=== PATIENT | female | born 1965 | race Caucasian/White ===

== ENCOUNTER 2017-03-21 03:28 | Emergency (ER) | payer OTHER ==
[~2017-03-21] VITALS: Ht 157.5 cm; Wt 75.2 kg
[~2017-03-21 03:28] MED LIST: ANT25 PO; GLC500 PO; LISI-725 PO; LOVA20TA4 PO
[2017-03-21 03:35] VITALS: Ht 157.5 cm; Wt 75.2 kg
[2017-03-21] MEDS ORDERED: SOAP SUDS ENEMA PR STA (04:23)
[2017-03-21] MEDS ORDERED: SODIUM CHLORIDE 0.9% 1000ML 1,000 ML IV STA ×2 (05:28)
[2017-03-21] MEDS ORDERED: DICYCLOMINE HCL 10 MG/ML 2 ML AMP IM ONE (05:30)
[2017-03-21] MEDS ORDERED: OPTIRAY 320 IV PRN (05:45)
[2017-03-21] MEDS ORDERED: LISI40TA PO (05:50)
[2017-03-21] MEDS ORDERED: ATOR-22 PO (05:50)
[2017-03-21] MEDS ORDERED: PRED10TA PO (05:51)
[2017-03-21] MEDS ORDERED: PRLSR20 PO (05:55)
[2017-03-21] MEDS ORDERED: ALBI1INJ SQ (05:56)
[2017-03-21] MEDS ORDERED: EMPA1TAB3 PO (05:57)
[2017-03-21] MEDS ORDERED: METF-384 PO (05:58)
[2017-03-21] MEDS ORDERED: FLUT0.15 NAE (05:59)
[2017-03-21] MEDS ORDERED: FERR1TAB13 PO (06:00)
[2017-03-21 06:09] LABS: BASO % 0.3 %; BASO ABS # 0.04 K/uL (0-0.2); COMPLETE YES; EOS % 1.7 %; HEMATOCRIT 42.4 % (37-47); IG% 0.3 %; LYMPH % 14.4 %; LYMPH ABS # 2.25 K/uL (1.2-3.4); MEAN CELL VOLUME 86.7 fL (80-100); MEAN CORPUSCULAR HEMOGLOBIN 30.3 pg (25-34); MEAN CORPUSCULAR HGB CONC 34.9 g/dl (32-36); MEAN PLATELET VOLUME 9.3 fL (7.4-10.4); MONO % 6.5 %; NEUT % 76.8 %; PLATELET COUNT 298 K/uL (130-400); RED BLOOD COUNT 4.89 M/uL (4.2-5.4); WHITE BLOOD COUNT 15.65 K/uL (4.8-10.8)
[2017-03-21 06:10] LABS: ISTAT HEMOGLOBIN 15.3 g/dl (12.0-16.0); ISTAT IONIZED CALCIUM 1.11 mmol/l (1.12-1.32)
[2017-03-21 06:21] LABS: BUN/CREATININE RATIO 12.8 (10-20); CALCIUM 9.6 mg/dl (8.5-10.1); CREATININE 1.2 mg/dl (0.60-1.20); POTASSIUM 3.8 mmol/L (3.5-5.1)
[2017-03-21 06:30] VITALS: TEMP 36.8
[2017-03-21 06:38] LABS: PREG INTERNAL NEGATIVE QC NEG CLEAR BACKGROUND; PREG INTERNAL POSITIVE QC POS CONTROL LINE
--- NOTE | 2017-03-21 06:50 | DIAGNOSTIC IMAGING REPORT ---
ABD/PELVIS IV CONTRAST ONLY HISTORY: 51 years-old Female acute left lower quadrant abdominal pain. Initial exam. COMPARISON: Acute abdominal series radiographs of same day TECHNIQUE: Multiple axial CT images of the abdomen and pelvis were obtained following the intravenous administration of 94 ml Optiray 320. A dose lowering technique was used consistent with the principals of CRISTY. FINDINGS: The lung bases are generally clear. There is no pneumoperitoneum. The imaged inferior cardiac chambers are unremarkable with trace pericardial effusion. Gallbladder is contracted. The liver, spleen, and pancreas within normal limits. 2 mm calcification associated with the lateral limb left adrenal gland is noted which may reflect remote hemorrhage. Right adrenal gland is within normal limits. Kidneys, ureters and urinary bladder are within normal limits. Focal area of ill-defined low-attenuation within the right fundal uterus, 1.7 x 1.4 cm is suspicious for uterine fibroid. Trace fluid is seen within the endometrial canal. Focal area of low attenuation, 1.7 x 1.6 cm in the region of the right vagina is noted. Aorta appears unremarkable. No bulky adenopathy. There is no bowel obstruction or focal bowel wall thickening. The majority of the colon is fluid-filled. The appendix measures the upper limits of normal at 7 mm, however is noninflamed. Soft tissues are unremarkable. The bones are intact. IMPRESSION: 1. Fluid-filled colon suggests diarrheal state without focal bowel wall thickening or bowel obstruction. 2. The appendix measures within the upper limits of normal at 7 mm however does not appear to be inflamed. 3. Probable right fundal uterine fibroid. 4. Trace fluid within the endometrial canal is noted in addition to a cystic appearing 1.7 cm lesion of the right vagina which is nonspecific and may reflect a Samuel duct cyst. The above report was generated using voice recognition software. It may contain grammatical, syntax or spelling errors. Electronically signed by: Juan C Kumar M.D. 03/21/2017 6:48 AM Dictated Date/Time: 03/21/2017 6:39 AM
--- NOTE | 2017-03-21 06:57 | EMERGENCY ROOM VISIT NOTE ---
History First contact with patient: 03:43 Chief Complaint: GI ASSESSMENT Stated Complaint: BAD PAIN IN INTESTINES Nursing Triage Summary: pt c/o lower abd pain with nausea since yesterday, states has hx of constipation and her last bm was 2 wks ago History of Present Illness The patient is a 51 year old female who presents to the Emergency Room with complaints of abdominal bloating cramping who feels constipated for the past week with nausea. Patient states she's been trying her fiber supplement with no relief of symptoms. Patient has a history of constipation. No history of bowel obstruction. Patient had small bowel movements. She is passing gas. Patient denies chest pain, dyspnea, fever, chills,vomiting, diarrhea, back pain , urinary symptoms. Patient sees GI at [facility]. She is unable to recall the exact name. She last saw him in September of this year. Review of Systems See HPI for pertinent positives & negatives. A total of 10 systems reviewed and were otherwise negative. Past Medical/Surgical History Hypertension, diabetes, hyperlipidemia, Social History Smoking Status: Never Smoker Smokeless Tobacco Use: No Drug Use: none Housing Status: lives with family Current/Historical Medications Scheduled Albiglutide (Tanzeum), 30 MG SQ WK Atorvastatin (Lipitor), 20 MG PO DAILY Empagliflozin (Jardiance), 25 MG PO QAM Ferrous Sulfate ( Ferrous Sulfate), 325 MG PO BID Fluticasone Propionate (Nasal) (Flonase Allergy Relief), 2 SPRY ELIZABETH DAILY Lisinopril (Zestril), 40 MG PO DAILY Metformin Hcl (Glucophage), 1,000 MG PO BID Omeprazole (Prilosec), 20 MG PO DAILY Prednisone Tab (Prednisone), 10 MG PO DAILY/UD Physical Exam Vital Signs Date Time Temp Pulse Resp B/P (MAP) Pulse Ox O2 Delivery O2 Flow Rate FiO2 03/21/17 06:30 36.8 03/21/17 06:13 87 20 107/58 98 Room Air 03/21/17 03:35 49 20 109/77 100 Room Air Physical Exam VITALS: Vitals are noted on the nurse's note and reviewed by myself. Vital signs stable. GENERAL: Pleasant female, in no acute distress, nondiaphoretic, well-developed well-nourished. SKIN: The skin was without rashes, erythema, edema, or bruising. There is no tenting of the skin. Capillary reflex less than 2 seconds. HEAD: Normocephalic atraumatic. EARS: External auditory canals clear, tympanic membranes pearly adams without erythema or effusion bilaterally. EYES: Pupils equal round and reactive to light and accommodation. Conjunctivae without injection, sclerae without icterus. Extraocular movements intact. NOSE: Patent, turbinates without inflammation or discharge. MOUTH: Mucous membranes moist. Pharynx without erythema or exudate. Uvula midline. Airway patent. Tongue does not deviate. NECK: Supple without nuchal rigidity. No lymphadenopathy. No thyromegaly. Cervical spine is nontender. No JVD. HEART: Regular rate and rhythm without murmurs gallops or rubs. LUNGS: Clear to auscultation bilaterally without wheezes, rales or rhonchi. No dullness to percussion. No retractions or accessory muscle use. ABDOMEN: Positive bowel sounds x 4. Normal tympanic percussion. Soft, nontender, without masses or organomegaly. Steward sign negative. No guarding or rebound tenderness. No CVA tenderness MUSCULOSKELETAL: No muscle atrophy, erythema, or edema noted. NEURO: Patient was alert and oriented to person place and time. Normal sensation to light and sharp touch. No focal neurological deficits. Medical Decision & Procedures Laboratory Results 03/21/17 05:50 Red Blood Count 4.89, Mean Corpuscular Volume 86.7, Mean Corpuscular Hemoglobin 30.3, Mean Corpuscular Hemoglobin Concent 34.9, Mean Platelet Volume 9.3, Neutrophils (%) (Auto) 76.8, Lymphocytes (%) (Auto) 14.4, Monocytes (%) (Auto) 6.5, Eosinophils (%) (Auto) 1.7, Basophils (%) (Auto) 0.3, Neutrophils # (Auto) 12.04, Lymphocytes # (Auto) 2.25, Monocytes # (Auto) 1.01, Eosinophils # (Auto) 0.26, Basophils # (Auto) 0.04 03/21/17 05:50 Test 03/21/17 05:50 03/21/17 05:57 White Blood Count 15.65 K/uL (4.8-10.8) Red Blood Count 4.89 M/uL (4.2-5.4) Hemoglobin 14.8 g/dL (12.0-16.0) Hematocrit 42.4 % (37-47) Mean Corpuscular Volume 86.7 fL (80-100) Mean Corpuscular Hemoglobin 30.3 pg (25-34) Mean Corpuscular Hemoglobin Concent 34.9 g/dl (32-36) Platelet Count 298 K/uL (130-400) Mean Platelet Volume 9.3 fL (7.4-10.4) Neutrophils (%) (Auto) 76.8 % Lymphocytes (%) (Auto) 14.4 % Monocytes (%) (Auto) 6.5 % Eosinophils (%) (Auto) 1.7 % Basophils (%) (Auto) 0.3 % Neutrophils # (Auto) 12.04 K/uL (1.4-6.5) Lymphocytes # (Auto) 2.25 K/uL (1.2-3.4) Monocytes # (Auto) 1.01 K/uL (0.11-0.59) Eosinophils # (Auto) 0.26 K/uL (0-0.5) Basophils # (Auto) 0.04 K/uL (0-0.2) RDW Standard Deviation 42.7 fL (36.4-46.3) RDW Coefficient of Variation 13.4 % (11.5-14.5) Immature Granulocyte % (Auto) 0.3 % Immature Granulocyte # (Auto) 0.05 K/uL (0.00-0.02) Est Creatinine Clear Calc Drug Dose 53.3 ml/min Estimated GFR () 61.0 Estimated GFR (Non- 52.7 BUN/Creatinine Ratio 12.8 (10-20) Calcium Level 9.6 mg/dl (8.5-10.1) Total Bilirubin 0.6 mg/dl (0.2-1) Direct Bilirubin 0.1 mg/dl (0-0.2) Aspartate Amino Transf (AST/SGOT) 15 U/L (15-37) Alanine Aminotransferase (ALT/SGPT) 22 U/L (12-78) Alkaline Phosphatase 64 U/L (45-117) Total Protein 7.6 gm/dl (6.4-8.2) Albumin 3.9 gm/dl (3.4-5.0) Lipase 335 U/L (73-393) Human Chorionic Gonadotropin, Qual NEG (NEG) Bedside Hemoglobin 15.3 g/dl (12.0-16.0) Bedside Hematocrit 45 % (37-47) Bedside Sodium 136 mEq/L (135-144) Bedside Potassium 3.8 mEq/L (3.3-5.0) Bedside Chloride 96 mEq/L (101-112) Bedside Total CO2 26 mEq/l (24-31) Anion Gap 18.0 mmol/L (16-25) Bedside Blood Urea Nitrogen 16 mg/dl (7-18) Bedside Creatinine 1.0 mg/dl (0.6-1.3) Bedside Glucose (other) 206 mg/dl (70-99) Bedside Ionized Calcium (Diana) 1.11 mmol/l (1.12-1.32) Medications Administered Medications (Trade) Dose Ordered Sig/Judy Route Start Time Stop Time Status Last Admin Dose Admin Miscellaneous (Soap Suds Enema) 1 ea NOW STAT NH 03/21/17 04:23 03/21/17 04:24 DC 03/21/17 05:03 1 EA Dicyclomine HCl (Bentyl Inj) 20 mg NOW ONCE IM 03/21/17 05:30 03/21/17 05:31 DC 03/21/17 06:09 20 MG Sodium Chloride 1,000 ml @ 999 mls/hr Q1H1M STAT IV 03/21/17 05:28 03/21/17 06:28 DC 03/21/17 06:10 999 MLS/HR ED Course Prior records/ancillary studies reviewed. Triage Nursing notes reviewed. Additional history obtained from family. The patient's history was concerning for abdominal bloating with constipation Differential diagnosis: Etiologies such as constipation, appendicitis, diverticulitis, PUD, biliary pathology, UTI, pancreatitis, obstruction, mesenteric ischemia, aortic pathology , infections, inflammatory bowel disease, renal colic, as well as others were entertained. Physical examination findings: As above. ER treatment provided: Enema On reassessment the patient felt better. Diagnostics interpreted by me: The labs revealed leukocytosis. Hyperglycemia without DKA Imaging studies: Acute abdominal series with no free air, obstruction or pneumothorax per my interpretation ABD/PELVIS IV CONTRAST ONLY HISTORY: 51 years-old Female acute left lower quadrant abdominal pain. Initial exam. COMPARISON: Acute abdominal series radiographs of same day TECHNIQUE: Multiple axial CT images of the abdomen and pelvis were obtained following the intravenous administration of 94 ml Optiray 320. A dose lowering technique was used consistent with the principals of CRISTY. FINDINGS: The lung bases are generally clear. There is no pneumoperitoneum. The imaged inferior cardiac chambers are unremarkable with trace pericardial effusion. Gallbladder is contracted. The liver, spleen, and pancreas within normal limits. 2 mm calcification associated with the lateral limb left adrenal gland is noted which may reflect remote hemorrhage. Right adrenal gland is within normal limits. Kidneys, ureters and urinary bladder are within normal limits. Focal area of ill-defined low-attenuation within the right fundal uterus, 1.7 x 1.4 cm is suspicious for uterine fibroid. Trace fluid is seen within the endometrial canal. Focal area of low attenuation, 1.7 x 1.6 cm in the region of the right vagina is noted. Aorta appears unremarkable. No bulky adenopathy. There is no bowel obstruction or focal bowel wall thickening. The majority of the colon is fluid-filled. The appendix measures the upper limits of normal at 7 mm, however is noninflamed. Soft tissues are unremarkable. The bones are intact. IMPRESSION: 1. Fluid-filled colon suggests diarrheal state without focal bowel wall thickening or bowel obstruction. 2. The appendix measures within the upper limits of normal at 7 mm however does not appear to be inflamed. 3. Probable right fundal uterine fibroid. 4. Trace fluid within the endometrial canal is noted in addition to a cystic appearing 1.7 cm lesion of the right vagina which is nonspecific and may reflect a Samuel duct cyst. The above report was generated using voice recognition software. It may contain grammatical, syntax or spelling errors. Electronically signed by: Juan C Kumar M.D. Exam and history seem consistent with abdominal discomfort most likely related to possible upcoming diarrheal state. Patient's pain persisted so further workup was initiated. Patient felt better after being medicated as above. Patient was advised to rest, stay well-hydrated and to eat a bland diet for next few days. She is advised to follow-up with her GI doctor or family care doctor this week or here in the ER sooner for abdominal pain, fevers, vomiting, worsening signs or symptoms or as needed. Patient did not have an acute abdomen on exam. She is well-appearing. She is tolerating fluids. By the evaluation outlined above emergent etiologies such as appendicitis, diverticulitis, PUD, biliary pathology, UTI, pancreatitis, obstruction, mesenteric ischemia, aortic pathology, infections, inflammatory bowel disease, renal colic, as well as others were deemed relatively unlikely. The pt informed about the findings as listed above. All questions were answered and pleased with the treatment. Return instructions were outlined and the patient was discharged in stable condition. Referral: The patient was referred back to their primary care physician for follow-up in 2 to 3 days for a recheck of the current condition. Medical Decision As above Medication Reconcilliation Current Medication List: was personally reviewed by me Blood Pressure Screening Patient's blood pressure: Normal blood pressure Impression Primary Impression: Generalized abdominal discomfort Departure Information Dispostion Home / Self-Care Condition GOOD Referrals Patrizia Stout M.D. (PCP) Patient Instructions My [facility] Additional Instructions DO NOT drive, drink alcohol, operate machinery, or perform dangerous activities today. You were given medications in the ER that can affect your ability to safely function or operate a vehicle. Acetaminophen(Tylenol) may be used for fever or pain. Use 1000mg every six hours as needed. Avoid using more than 4000mg in a 24 hour period. Rest and drink plenty of fluids as tolerated. Slow sips of water or sports drinks are recommended instead of large amounts all at once. Continue current medications. Once your stomach is settled start with a clear liquid diet (jello, soup broth, etc.) and then advance as tolerated. You should avoid full, heavy meals for about 24 hrs from the time your symptoms resolved. Return to the ER for persistent vomiting, fevers, abdominal pain, chest pains, difficulty breathing, black or bloody stools, worsening of your condition, or as needed. Follow up with your primary physician or your medical officer in 2-3 days for a recheck of your current condition.
--- NOTE | 2017-03-21 06:59 | DIAGNOSTIC IMAGING REPORT ---
ABDOMEN 2VIEW W/PA CHEST RTN HISTORY: 51 years-old Female acute generalized abdominal pain with constipation. COMPARISON: CT abdomen and pelvis of same day TECHNIQUE: Frontal view of chest with erect and supine views of the abdomen FINDINGS: Cardiomediastinal and hilar silhouettes are within normal limits. No pneumothorax, pleural effusion or focal airspace consolidation. Bowel gas pattern is nonobstructive. No pneumoperitoneum on the upright projection. No urolithiasis or fracture identified. There is mild convex left curvature of the lower thoracic spine which may be exaggerated by positioning. IMPRESSION: 1. No acute cardiopulmonary process. 2. Nonobstructive bowel gas pattern without pneumoperitoneum. 3. No urolithiasis identified. The above report was generated using voice recognition software. It may contain grammatical, syntax or spelling errors. Electronically signed by: Juan C Kumar M.D. 03/21/2017 6:57 AM Dictated Date/Time: 03/21/2017 6:55 AM
[2017-03-21] MEDS ORDERED: ONDANSETRON HOME PACK 4MG OD TAB PO ONE (07:00)
[2017-03-21] MEDS ORDERED: BENTYL HOME PACK 10 MG VIAL PO ONE (07:00)
[2017-03-21 07:12] VITALS: BP 117/62; PULSE 91; O2SAT 99
== END 2017-03-21 07:14 | disposition home or self-care (01) ==
LOC: C.EDB 03:29 → C.EDA 07:14
DX: R10.84 Generalized abdominal pain (principal); I10 Essential (primary) hypertension; E11.9 Type 2 diabetes mellitus without complications; E78.5 Hyperlipidemia, unspecified

== ENCOUNTER 2018-03-09 02:51 | Emergency (ER) | payer OTHER ==
[~2018-03-09] VITALS: Ht 157.5 cm; Wt 64.8 kg
[~2018-03-09 02:51] MED LIST changes: +ALBI1INJ SQ; -ANT25 PO; +ATOR-22 PO; +EMPA1TAB3 PO; +FERR1TAB13 PO; +FLUT0.15 NAE; -GLC500 PO; -LISI-725 PO; +LISI40TA PO; -LOVA20TA4 PO; +METF-384 PO; +PRED10TA PO; +PRLSR20 PO
[2018-03-09 02:56] VITALS: Ht 157.5 cm; Wt 64.8 kg
[2018-03-09] MEDS ORDERED: KETOROLAC TROMETHAMINE 30 MG/ML VIAL IV STA (03:20)
[2018-03-09] MEDS ORDERED: ONDANSETRON INJ 2 MG/ML 2 ML VIAL IV STA (03:20)
[2018-03-09] MEDS ORDERED: SODIUM CHLORIDE 0.9% 1000ML 1,000 ML IV ONE (03:30)
[2018-03-09 03:58] LABS: BASO % 0.4 %; BASO ABS # 0.05 K/uL (0-0.2); EOS % 2.3 %; EOS ABS # 0.31 K/uL (0-0.5); HEMATOCRIT 41.6 % (37-47); HEMOGLOBIN 13.9 g/dL (12.0-16.0); IG# 0.03 K/uL (0.00-0.02); LYMPH ABS # 3.61 K/uL (1.2-3.4); MEAN CORPUSCULAR HEMOGLOBIN 28.1 pg (25-34); MEAN CORPUSCULAR HGB CONC 33.4 g/dl (32-36); MEAN PLATELET VOLUME 9.5 fL (7.4-10.4); MONO % 5.8 %; MONO ABS # 0.77 K/uL (0.11-0.59); NEUT % 64.3 %; NEUT ABS # 8.62 K/uL (1.4-6.5); PLATELET COUNT 331 K/uL (130-400); RED CELL DISTRIBUTION WIDTH CV 14.7 % (11.5-14.5); RED CELL DISTRIBUTION WIDTH SD 45.3 fL (36.4-46.3); WHITE BLOOD COUNT 13.39 K/uL (4.8-10.8)
[2018-03-09 04:25] LABS: ALBUMIN 3.9 gm/dl (3.4-5.0); CREATININE 0.99 mg/dl (0.60-1.20); TOTAL PROTEIN 8.1 gm/dl (6.4-8.2)
[2018-03-09] MEDS ORDERED: CIPROFLOXACIN 500MG HOME PACK PO ONE (05:45)
[2018-03-09] MEDS ORDERED: NORCO 5/325MG HOME PACK PO ONE (05:45)
[2018-03-09] MEDS ORDERED: ONDANSETRON HOME PACK 4MG OD TAB PO ONE (05:45)
[2018-03-09] MEDS ORDERED: CIPR-255 PO (05:46)
[2018-03-09 05:51] VITALS: PULSE 79; O2SAT 98
[2018-03-09 05:58] VITALS: BP 116/65
--- NOTE | 2018-03-09 08:00 | DIAGNOSTIC IMAGING REPORT ---
ABD/PELVIS NO IV OR ORAL CONT CLINICAL HISTORY: 52 years-old Female presenting with low abd pain. TECHNIQUE: Multidetector CT of the abdomen and pelvis was performed without the use of intravenous contrast. IV contrast: None. A dose lowering technique was used consistent with the principles of ALARA (as low as reasonably achievable). COMPARISON: 03/21/2017. CT DOSE (mGy.cm): The estimated cumulative dose is 337.92 mGy.cm. FINDINGS: [employer] topogram: Unremarkable. Lung bases: Lungs and pleural spaces clear. Normal heart size. No pericardial or pleural effusion. Liver: Normal morphology. Normal density. Vague hypodensity in the left hepatic lobe (series 3 image 49). Biliary: No gross biliary ductal dilatation allowing for noncontrast technique. Gallbladder decompressed. Pancreas: Normal noncontrast appearance. Spleen: Normal noncontrast appearance. Adrenal glands: Few calcifications within the left adrenal gland may suggest prior granulomatous infection or prior hemorrhage. Right adrenal gland normal. Kidneys and ureters: Normal noncontrast appearance. No nephrolithiasis. No hydronephrosis. Normal ureters. Bladder: Normal noncontrast appearance. Pelvic organs: Interval increase in size of the low density lesion, which is poorly defined on this noncontrast examination though measuring slightly more than 2 cm in diameter. This appears to be located along the anterior vaginal wall. Normal noncontrast appearance of the uterus and ovaries. Bowel: Normal appendix. Mild small bowel wall thickening may be present in the left abdomen. No bowel obstruction. Peritoneal cavity: No free fluid or intraperitoneal gas. Mild nonspecific fat infiltration of the mesentery, possibly mild mesenteric panniculitis. Lymph nodes: No gross lymphadenopathy allowing for noncontrast technique. Vasculature: Normal noncontrast appearance. Abdominal wall: Normal. Musculoskeletal: Normal. IMPRESSION: 1. Mild small bowel wall thickening may be present, which could suggest a mild enteritis. 2. Indeterminate hypodense lesion in the left hepatic lobe. This may represent a hepatic cyst or hemangioma. If there is a history of hepatocellular risk factors or malignancy, further evaluation with contrast-enhanced CT or MR of the liver recommended. 3. Interval increase in size of the cystic lesion along the anterior vaginal wall. This may represent a Samuel duct cyst. Given the increase in size, directly visualization and/or gynecologic consultation is recommended. Electronically signed by: Earl Kapoor M.D. 03/09/2018 7:58 AM Dictated Date/Time: 03/09/2018 6:35 AM
--- NOTE | 2018-03-10 04:38 | EMERGENCY ROOM VISIT NOTE ---
History First contact with patient: 03:00 Chief Complaint: ABDOMINAL PAIN Stated Complaint: SEVERE LOWER ABDOMEN PAIN Nursing Triage Summary: pt has been having episodes of abdominal pains and nausea for about 3 weeks without a diagnosis History of Present Illness The patient is a 52 year old female who presents to the Emergency Room with complaints of intermittent episodes of severe abdominal pain with nausea for the past 3 weeks. The patient states that she will have episodes every several days that feel like a very strong cramping or like contraction. She then feels very flushed followed by diarrhea and vomiting. The patient states that after this episode her discomfort always improves and she returns to baseline. She has been following with her primary care physician for this complaint, but has not had significant improvement. The patient has a history of kidney stones, however this does not feel similar to that. She is not having difficulty urinating. No fevers or chills. She had a return of her symptoms about 1 hour ago, prompting her presentation. Her current discomfort is rated at 2/10 however. She has not taken anything [id number] for her discomfort today. Food does not appear to improve or worsen the pain. Review of Systems More than 10 systems were reviewed and otherwise negative with the exception of history of present illness. Past Medical/Surgical History No pertinent chronic medical disease Family History No pertinent family history Social History Smoking Status: Never Smoker Drug Use: none Housing Status: lives with family Current/Historical Medications Scheduled Albiglutide (Tanzeum), 30 MG SQ WK Atorvastatin (Lipitor), 20 MG PO DAILY Ciprofloxacin Hcl (Cipro), 500 MG PO BID Empagliflozin (Jardiance), 25 MG PO QAM Ferrous Sulfate (Kp Ferrous Sulfate), 325 MG PO BID Lisinopril (Zestril), 40 MG PO DAILY Metformin Hcl (Glucophage), 1,000 MG PO BID Omeprazole (Prilosec), 20 MG PO DAILY Physical Exam Vital Signs Date Time Temp Pulse Resp B/P (MAP) Pulse Ox O2 Delivery O2 Flow Rate FiO2 03/09/18 05:58 116/65 03/09/18 05:51 79 18 98 03/09/18 05:21 82 98 03/09/18 04:58 109/69 03/09/18 04:58 84 18 109/69 99 Room Air 03/09/18 02:56 73 18 128/85 100 Room Air Physical Exam VITALS: Vitals are noted on the nurse's note and reviewed by myself. Vital signs stable. GENERAL: Well-developed, well-nourished, white female, who is in no acute distress and resting comfortably. Patient is cooperative with the examination. HEAD: Normocephalic atraumatic. NECK: Supple without nuchal rigidity. No lymphadenopathy. No thyromegaly. Cervical spine is nontender. HEART: Regular rate and rhythm without murmurs gallops or rubs. LUNGS: Clear to auscultation bilaterally without wheezes, rales or rhonchi. No retractions or accessory muscle use. ABDOMEN: Positive normal bowel sounds x 4. Soft, nontender, without masses or organomegaly. No guarding or rebound tenderness. MUSCULOSKELETAL: No muscle atrophy, erythema, or edema noted. Full range of motion in all extremities. NEURO: Patient was alert and oriented to person place and time. CN II through XII grossly intact. Medical Decision & Procedures ER Provider Diagnostic Interpretation: ABD/PELVIS NO IV OR ORAL CONT CLINICAL HISTORY: 52 years-old Female presenting with low abd pain. TECHNIQUE: Multidetector CT of the abdomen and pelvis was performed without the use of intravenous contrast. IV contrast: None. A dose lowering technique was used consistent with the principles of ALARA (as low as reasonably achievable). COMPARISON: 03/21/2017. CT DOSE (mGy.cm): The estimated cumulative dose is 337.92 mGy.cm. FINDINGS: Basket Braider topogram: Unremarkable. Lung bases: Lungs and pleural spaces clear. Normal heart size. No pericardial or pleural effusion. Liver: Normal morphology. Normal density. Vague hypodensity in the left hepatic lobe (series 3 image 49). Biliary: No gross biliary ductal dilatation allowing for noncontrast technique. Gallbladder decompressed. Pancreas: Normal noncontrast appearance. Spleen: Normal noncontrast appearance. Adrenal glands: Few calcifications within the left adrenal gland may suggest prior granulomatous infection or prior hemorrhage. Right adrenal gland normal. Kidneys and ureters: Normal noncontrast appearance. No nephrolithiasis. No hydronephrosis. Normal ureters. Bladder: Normal noncontrast appearance. Pelvic organs: Interval increase in size of the low density lesion, which is poorly defined on this noncontrast examination though measuring slightly more than 2 cm in diameter. This appears to be located along the anterior vaginal wall. Normal noncontrast appearance of the uterus and ovaries. Bowel: Normal appendix. Mild small bowel wall thickening may be present in the left abdomen. No bowel obstruction. Peritoneal cavity: No free fluid or intraperitoneal gas. Mild nonspecific fat infiltration of the mesentery, possibly mild mesenteric panniculitis. Lymph nodes: No gross lymphadenopathy allowing for noncontrast technique. Vasculature: Normal noncontrast appearance. Abdominal wall: Normal. Musculoskeletal: Normal. IMPRESSION: 1. Mild small bowel wall thickening may be present, which could suggest a mild enteritis. 2. Indeterminate hypodense lesion in the left hepatic lobe. This may represent a hepatic cyst or hemangioma. If there is a history of hepatocellular risk factors or malignancy, further evaluation with contrast-enhanced CT or MR of the liver recommended. 3. Interval increase in size of the cystic lesion along the anterior vaginal wall. This may represent a Samuel duct cyst. Given the increase in size, directly visualization and/or gynecologic consultation is recommended. Laboratory Results 03/09/18 03:40 Red Blood Count 4.95, Mean Corpuscular Volume 84.0, Mean Corpuscular Hemoglobin 28.1, Mean Corpuscular Hemoglobin Concent 33.4, Mean Platelet Volume 9.5, Neutrophils (%) (Auto) 64.3, Lymphocytes (%) (Auto) 27.0, Monocytes (%) (Auto) 5.8, Eosinophils (%) (Auto) 2.3, Basophils (%) (Auto) 0.4, Neutrophils # (Auto) 8.62, Lymphocytes # (Auto) 3.61, Monocytes # (Auto) 0.77, Eosinophils # (Auto) 0.31, Basophils # (Auto) 0.05 03/09/18 03:40 Test 03/09/18 03:30 03/09/18 03:40 Urine Color YELLOW Urine Appearance CLOUDY (CLEAR) Urine pH 5.0 (4.5-7.5) Urine Specific [place] 1.038 (1.000-1.030) Urine Protein TRACE (NEG) Urine Glucose (UA) 3+ (NEG) Urine Ketones 1+ (NEG) Urine Occult Blood 2+ (NEG) Urine Nitrite NEG (NEG) Urine Bilirubin NEG (NEG) Urine Urobilinogen NEG (NEG) Urine Leukocyte Esterase MODERATE (NEG) Urine WBC (Auto) >30 /hpf (0-5) Urine RBC (Auto) 5-10 /hpf (0-4) Urine Hyaline Casts (Auto) 1-5 /lpf (0-5) Urine Epithelial Cells (Auto) 10-20 /lpf (0-5) Urine Bacteria (Auto) NEG (NEG) White Blood Count 13.39 K/uL (4.8-10.8) Red Blood Count 4.95 M/uL (4.2-5.4) Hemoglobin 13.9 g/dL (12.0-16.0) Hematocrit 41.6 % (37-47) Mean Corpuscular Volume 84.0 fL (80-100) Mean Corpuscular Hemoglobin 28.1 pg (25-34) Mean Corpuscular Hemoglobin Concent 33.4 g/dl (32-36) Platelet Count 331 K/uL (130-400) Mean Platelet Volume 9.5 fL (7.4-10.4) Neutrophils (%) (Auto) 64.3 % Lymphocytes (%) (Auto) 27.0 % Monocytes (%) (Auto) 5.8 % Eosinophils (%) (Auto) 2.3 % Basophils (%) (Auto) 0.4 % Neutrophils # (Auto) 8.62 K/uL (1.4-6.5) Lymphocytes # (Auto) 3.61 K/uL (1.2-3.4) Monocytes # (Auto) 0.77 K/uL (0.11-0.59) Eosinophils # (Auto) 0.31 K/uL (0-0.5) Basophils # (Auto) 0.05 K/uL (0-0.2) RDW Standard Deviation 45.3 fL (36.4-46.3) RDW Coefficient of Variation 14.7 % (11.5-14.5) Immature Granulocyte % (Auto) 0.2 % Immature Granulocyte # (Auto) 0.03 K/uL (0.00-0.02) Anion Gap 14.0 mmol/L (3-11) Est Creatinine Clear Calc Drug Dose 59.4 ml/min Estimated GFR () 76.5 Estimated GFR (Non- 66.0 BUN/Creatinine Ratio 12.5 (10-20) Calcium Level 9.0 mg/dl (8.5-10.1) Total Bilirubin 0.5 mg/dl (0.2-1) Aspartate Amino Transf (AST/SGOT) U/L (15-37) Alanine Aminotransferase (ALT/SGPT) 24 U/L (12-78) Alkaline Phosphatase 61 U/L (45-117) Total Protein 8.1 gm/dl (6.4-8.2) Albumin 3.9 gm/dl (3.4-5.0) Globulin 4.2 gm/dl (2.5-4.0) Albumin/Globulin Ratio 0.9 (0.9-2) Lipase 262 U/L (73-393) Medications Administered Medications (Trade) Dose Ordered Sig/Judy Route Start Time Stop Time Status Last Admin Dose Admin Sodium Chloride 1,000 ml @ 999 mls/hr Q1H1M ONCE IV 03/09/18 03:30 03/09/18 04:30 DC 03/09/18 03:42 999 MLS/HR Ketorolac Tromethamine (Toradol Inj) 30 mg NOW STAT IV 03/09/18 03:20 03/09/18 03:22 DC 03/09/18 03:46 30 MG Ondansetron HCl (Zofran Inj) 4 mg NOW STAT IV 03/09/18 03:20 03/09/18 03:22 DC 03/09/18 03:42 4 MG Ciprofloxacin (Cipro 500MG Home Pack) 1 homepack UD ONCE PO 03/09/18 05:45 03/09/18 05:46 DC 03/09/18 05:57 1 HOMEPACK Acetaminophen/ Hydrocodone Bitart ([place] 5/325mg Home Pack) 1 homepack UD ONCE PO 03/09/18 05:45 03/09/18 05:46 DC 03/09/18 05:57 1 HOMEPACK Ondansetron HCl (ZOFRAN ODT 4MG Home Pack) 1 homepack UD ONCE PO 03/09/18 05:45 03/09/18 05:46 DC 03/09/18 05:57 1 HOMEPACK ED Course Physical exam and history were performed. Nursing notes, EMR, and Medication List were personally reviewed. Patient appears to have vague abdominal symptoms bring her to the emergency department tonight. On examination the patient does not appear toxic. IV access was established and labs were obtained. She was hydrated and medicated as above. Because of the nature of her symptoms I did elect to perform a CT scan of the abdomen and pelvis. The patient's blood work is as above and was reviewed. She is with a mildly elevated white blood cell count of unknown etiology. She does not have a significant anemia or gross electrolyte imbalance. Lipase and transaminases are not diagnostic. Her urine is suggestive of infection with culture pending. The patient CT scan suggests a mild enteritis, which could certainly explain her discomfort. On reevaluation the patient appears very comfortable and continues with no significant abdominal tenderness. I discussed options of care with the patient , and utilizing shared decision making will start her on a course of Cipro. This could cover her for a GI etiology and for UTI. The patient CT scan was reread in the morning by our radiologists, as she has multiple incidental findings. We will contact the patient in the morning and have her follow with [facility] and her primary care physician regarding these. Overall the patient was invited back to the ER with any new, worsening, or concerning symptoms. The chart was completed utilizing [employer] Voice Recognition Software. Grammatical errors, random word insertions, pronoun errors, and incomplete sentences are an occasional consequence of this system due to software limitations, ambient noise, and hardware issues. Any formal questions or concerns about the content, text, or information contained within the body of this dictation should be directly addressed to the provider for clarification. . Medical Decision Differential diagnosis: Etiologies such as appendicitis, diverticulitis, PUD, biliary pathology, UTI, pancreatitis, obstruction, mesenteric ischemia, aortic pathology, infections, inflammatory bowel disease, renal colic, as well as others were entertained. Impression Primary Impression: Abdominal pain Additional Impression: UTI (urinary tract infection) Departure Information Dispostion Home / Self-Care Condition GOOD Prescriptions Ciprofloxacin Hcl (CIPRO) 500 Mg Tab 500 MG PO BID for 9 Days, #18 TAB Prov: Josh Walker PA-C 03/09/18 Forms Call Back Authorization, HOME CARE DOCUMENTATION FORM, IMPORTANT VISIT INFORMATION Patient Instructions My [facility] Additional Instructions You were seen and evaluated today on an emergency basis only. This is not a substitute for, or an effort to provide, complete comprehensive medical care. It is not possible to recognize and treat all injuries or illnesses in a single emergency department visit. For this reason it is recommended that you followup with your primary care physician in the next week for recheck of your condition. Drink plenty fluids and remain well-hydrated. Ciprofloxacin(Cipro) 500mg: Take one pill twice daily for 10 days for your infection. All antibiotics can cause diarrhea. If this occurs and you feel worse or it does not resolve in 1-2 days follow up with your doctor or return to the Emergency Department as this could be signs of serious underlying problems. If you experience any pain in your tendons or any tendon injury return to the ER for re-evaluation. Any medication can cause an allergic reaction, stop the pills immediately and return to the ER for rash, hives, breathing difficulties, or swelling. Zofran 4 mg ODT: Dissolve 1 tablet every 6 hrs as needed for nausea. Lodi (hydrocodone/acetaminophen) 5/325 mg (homepack): Take ONE pill by mouth every 6 hours as needed for worsening breakthrough pain. Do not drink or drive on [place]. This medication will likely make you tired. Do not take Lodi and Tylenol at the same time as both contain acetaminophen. Lodi may cause constipation. You may wish to take an [id number] stool softener like Colace if this occurs. You are welcome to return to the emergency department anytime with new, worsening, or concerning symptoms. Problem Qualifiers
== END 2018-03-09 06:09 | disposition home or self-care (01) ==
LOC: C.EDB 02:52
DX: R10.9 Unspecified abdominal pain (principal); N39.0 Urinary tract infection, site not specified; R11.2 Nausea with vomiting, unspecified; R19.7 Diarrhea, unspecified; Z79.4 Long term (current) use of insulin; Z79.899 Other long term (current) drug therapy